=== PATIENT | male | born 1970 | race Caucasian/White ===

== ENCOUNTER 2022-03-10 13:16 | Emergency (ER) | payer OTHER, SELFPAY ==
[2022-03-10 13:31] VITALS: BP 132/86; PULSE 58; RESP 18; TEMP 36.7; O2SAT 99
--- NOTE | 2022-03-10 14:24 | ED.URI ---
HPI - URI/Sore Throat General Chief Complaint: Upper Respiratory Infection Stated Complaint: Congestion/Cough Time Seen by Provider: 03/10/22 14:24 Source: patient and RN notes reviewed Mode of arrival: ambulatory Limitations: no limitations History of Present Illness HPI Narrative: 51-year-old male presents with concern for 2 week history of nasal congestion, drainage, cough, sore throat. 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 Reports his cough started 3 days ago and is keeping him awake at night. He denies fever, chills, sweats. MD elicited complaint: cough and nasal congestion Related Data Home Medications Medication Instructions Recorded Confirmed escitalopram oxalate 20 mg tablet 10 mg DAILY 03/10/22 03/10/22 Allergies Allergy/AdvReac Type Severity Reaction Status Date / Time azithromycin Allergy Unknown Verified 03/10/22 13:38 Review of Systems Review of Systems: CONSTITUTIONAL: Reports malaise no denies chills, sweats, or fever. EYES: Denies visual changes, redness, or discharge. ENT: Reports rhinorrhea, congestion, sinus pain, and sore throat. CARDIOVASCULAR: Denies chest pain, palpitations, or edema. RESPIRATORY: Reports persistent cough. Denies dyspnea. GASTROINTESTINAL: Denies abdominal pain, nausea, vomiting, diarrhea SKIN: Denies rash or itching. MUSCULOSKELETAL: Denies myalgia. NEUROLOGIC: Denies headache. All systems reviewed & are unremarkable except as noted in HPI and below PMFSH Comments At time of signature, agree with nursing past medical, surgical, social and family history. There is no relevant family history pertinent to the presenting complaint Exam Narrative: GENERAL: Nontoxic-appearing and in no acute distress. HEAD: Normocephalic EYES: PERRLA, conjunctivae clear ENT: Nares clear, turbinates edematous and erythematous, richardson discharge. Mucous membranes moist. TM pearly novoa with dull light reflex bilaterally; no tragal tenderness. Oropharynx not erythematous without lesions. Tonsils not enlarged and without exudate, no drooling, no hoarseness, no trismus, uvula midline. NECK: Supple. No lymphadenopathy CHEST: Clear to auscultation, breath sounds equal. No wheezing, rhonchi, rales, or stridor. No respiratory distress, speaks in full sentences. Cough noted HEART: Regular rate and rhythm. No murmur heard. SKIN: Warm, dry, no rash. NEURO: Alert and oriented x3. PSYCH: Normal mood and affect Course Course Emergency Course: Patient is aware of diagnosis, understands and agrees to treatment plan. Anticipatory guidance given. Patient agrees to follow-up as directed and is aware of reasons to seek care at the emergency department. Portions of this record may have been created with voice recognition software Level of Care: Express Care Visit Vital Signs Vital signs: Vital Signs Temperature 98.1 F 03/10/22 13:31 Pulse Rate 58 L 03/10/22 13:31 Respiratory Rate 18 03/10/22 13:31 Blood Pressure 132/86 03/10/22 13:31 Pulse Oximetry 99 03/10/22 13:31 Oxygen Delivery Room Air 03/10/22 13:31 Temperature 98.1 F 03/10/22 13:31 Pulse Rate 58 L 03/10/22 13:31 Respiratory Rate 18 03/10/22 13:31 Blood Pressure 132/86 03/10/22 13:31 Pulse Oximetry 99 03/10/22 13:31 Oxygen Delivery Room Air 03/10/22 13:31 Reviewed. MDM - URI/Sore Throat MDM Narrative Medical decision making narrative: Differential diagnosis considered: [place] virus, strep pharyngitis, allergic rhinitis, upper respiratory tract infection, sinusitis, rhinosinusitis, nasopharyngitis. viral pharyngitis, otitis media, otitis externa, pneumonia, bronchitis, viral cough syndrome, viral syndrome, and influenza. Exam findings show no acute concerns or changes; patient is non-toxic appearing and is in no distress. Patient is appropriate for outpatient treatment and follow-up. Lab Data Attestation: I reviewed the patient's lab results. Critical Care Time Critical Care Time Critical Care Time: No Dis
== END 2022-03-10 14:38 | disposition home or self-care (01) ==
PROVIDERS: Emergency Provider Nurse Practitioner
DX: J40 Bronchitis, not specified as acute or chronic (principal); J32.9 Chronic sinusitis, unspecified
CPT/HCPCS: 99203; G0463

== ENCOUNTER 2022-10-09 16:12 | Emergency (ER) | payer OTHER, SELFPAY ==
[2022-10-09 16:21] VITALS: BP 138/93; PULSE 56; RESP 20; TEMP 36.3; O2SAT 100
--- NOTE | 2022-10-09 16:25 | ED.ANIMALBIT ---
HPI - Animal Bite General Chief Complaint: Skin/Abscess/Foreign Body Stated Complaint: Cat Scratch right finger Source: patient and RN notes reviewed History of Present Illness HPI narrative: 52-year-old male presents to the [facility] today complaining of cat scratches. Patient stated earlier this morning he was trying to place his cat in a cage when the cat was resisting and scratch the patient multiple times trying to get out of the cage. Patient denies the cat actually biting the patient and states that the cat only scratched the patient. Since then patient has noticed increased swelling to the MCP knuckle on his right, index finger. Patient does have multiple scratches noted to the right hand and right right forearm. Patient is concerned for infection. Patient is unsure if the cat's rabies are up to date however he is able to quarantine the cat if needed to. Patient states his tetanus is up-to-date. Patient cleaned the wound with mild soap and water prior to arrival. Related Data Home Medications Medication Instructions Recorded Confirmed alprazolam 0.5 mg tablet 0.5 mg PO TID 10/09/22 10/09/22 escitalopram oxalate 5 mg tablet 5 mg PO DAILY 10/09/22 10/09/22 testosterone See Rx Instructions .Route .COMPLEX 10/09/22 10/09/22 Allergies Allergy/AdvReac Type Severity Reaction Status Date / Time azithromycin Allergy Unknown Verified 10/09/22 16:35 Review of Systems Review of Systems: GENERAL: This is a well-nourished, well-developed patient, in no apparent distress. HEAD: normocephalic, atraumatic. EYES: Sclera clear/white. Vision is grossly intact. EARS: External ears normal, auditory canals clear and without drainage, TMs normal without perforation. Hearing grossly intact. NOSE: External nose normal with no obvious nasal discharge, nares without redness, no rhinorrhea. THROAT: Mucous membranes moist, posterior pharynx clear. NECK: Neck supple, non-tender without lymphadenopathy, masses or thyromegaly. CARDIOVASCULAR: Regular rate and rhythm without murmurs, gallops, or rubs. RESPIRATORY: Clear to auscultation. Breath sounds equal bilaterally. No wheezes, rales, or rhonchi. GASTROINTESTINAL: Abdomen soft, non-tender, nondistended. Bowel sounds are active. No hepato-splenomegaly, or palpable masses. No guarding. SKIN: Multiple scratches to the right arm. NEURO: awake, alert, and oriented to person, place and time. There were no obvious focal neurologic abnormalities. EXTREMITIES: No clubbing, cyanosis, or edema. No joint tenderness, effusion, or edema noted. BACK: Nontender without deformity or crepitus. No flank tenderness. PMFSH Comments At the time of my signature, I reviewed and agree with the nursing past medical, surgical, social, and family history. There is no relevant family history pertinent to the patient complaint. Exam Narrative: GENERAL: This is a well-nourished, well-developed patient, in no apparent distress. HEAD: normocephalic, atraumatic. EYES: Sclera clear/white. Vision is grossly intact. EARS: External ears normal, auditory canals clear and without drainage, TMs normal without perforation. Hearing grossly intact. NOSE: External nose normal with no obvious nasal discharge, nares without redness, no rhinorrhea. THROAT: Mucous membranes moist, posterior pharynx clear. NECK: Neck supple, non-tender without lymphadenopathy, masses or thyromegaly. CARDIOVASCULAR: Regular rate and rhythm without murmurs, gallops, or rubs. RESPIRATORY: Clear to auscultation. Breath sounds equal bilaterally. No wheezes, rales, or rhonchi. SKIN: There is an area of erythema noted to the 2nd right MCP knuckle. No induration or area of fluctuance. There are multiple scattered linear scratches noted to the right dorsal surface of the hand and forearm that all measure less than 0.5 cm in length. No surrounding cellulitis noted to the scratches. No drainage present. NEURO: awake, alert, and oriented to person, place and
[2022-10-09 16:35] VITALS: BP 138/93; PULSE 56; RESP 20; TEMP 36.3; O2SAT 100
== END 2022-10-09 16:50 | disposition home or self-care (01) ==
PROVIDERS: Emergency Provider Nurse Practitioner Family; PCP Internal Medicine
DX: S60.511A Abrasion of right hand, initial encounter (principal); S50.811A Abrasion of right forearm, initial encounter; W55.03XA Scratched by cat, initial encounter
CPT/HCPCS: 99213; G0463